=== PATIENT | female | born 1955 | race Caucasian/White ===

== ENCOUNTER → 2022-09-24 10:37 | Outpatient (CLI) | payer MEDICARE, SELFPAY ==
--- NOTE | 2022-09-24 10:37 | NM_ITS ---
APPROVED REPORT Exam: Nuclear Stress Test Indication: Chest pain, SOB, CAD, HTN, High cholesterol, Tobacco use Patient Location: Outpatient Stress Tech: Lianet Blancas [place] Tech:Irena Marin, ARRT, RT (R)(N) Ht: 5 ft 1 in Wt: 120 lbs Bra Size: 34C HR: 75 bpm BP: 173/68 mmHg BSA: 1.52 m2 Rhythm: NSR TID: 1.12 BMI: 22.6 History: Chest pain, SOB, CAD, HTN, High cholesterol, Tobacco use Procedure: Patient received 0.4 mg of intravenous Lexiscan, resting heart rate 75 bpm, resting blood pressure 173/68 mmHg, with Lexiscan maximum heart rate achieved was 113 bpm which is % of the maximum predicted heart rate and blood pressure was 227/110 mmHg. With Lexiscan, patient denied any complaint of chest pain. Cardiac Stress and Resting SPECT Images: Cardiac Stress and Resting SPECT images were obtained using technetium 99m Myoview 32.0 mCi stress and 10.18 mCi at rest. Resting and stress perfusion imaging in both supine and prone positions demonstrate no evidence of fixed or reversible perfusion defects. Gated imaging demonstrates normal global and regional LV systolic function. LVEF is calculated at 67%. Conclusion: No evidence of fixed or reversible perfusion defects. Gated imaging demonstrates normal global and regional LV systolic function. LVEF is calculated at 67%. Electronically signed by : Mony Cummings, 09/25/2022 11:54:09
--- NOTE | 2022-09-24 11:16 | CA_ITS ---
APPROVED REPORT EXAM: Comprehensive 2D, Doppler, and color-flow Echocardiogram Customer Account Representative: Kiya Esteban, GEOVANNA, RVS Ht: 5 ft 1 in Wt: 121lbs BSA: 1.53 HR: 74 bpm BP: 139/84 mmHg Rhythm: NSR Indications: CP, CAD-stents, SOB, HLD 2D Dimensions IVSd 0.93 cm F: 0.6-1.0 LVEF (Visual) 51.50 % PWd 0.78 cm F: 0.6 - 1.0 LA Volume 53.80 mL LVDd 4.40 cm F: 3.9 - 5.3 LA Volume Index 34.50 mL/m2 (M/F) 16-34 LVDs 3.66 cm F: 2.2 - 3.5 M-Mode Dimensions LA Diam 3.69 cm (1.9-4.0) LVDd 4.05 cm (3.5-5.7) Ao Diam 2.68 cm (2.0-3.7) LVDs 2.55 cm (3.5-5.7) EF (Teich) 67.50% EPSs 0.24 cm FS 37.00% EDV (Teich) 72.10 mL TAPSE 2.29 (<1.7) ESV (Teich) 23.40 mL LV Diastology E Decel Time 197.00 (160-240 msec) E/A Ratio 1.16 MED E' 7.00 (< 7 cm/sec) MED A' 6.70 cm/s E'/MED E' Ratio 19.04 (>14) LAT E' 6.00 (<10 cm/sec) LAT A' 7.80 cm/s E/LAT E' Ratio 22.22 (>14) Aortic Valve LVOT Max 122.00 (70-110 cm/s) LVOT VTI 27.55 cm AoV Peak Axel. 233.00 (50-130 cm/s) AI PHT 312.00 ms AO Peak GR. 21.70 mmHg AO Mean GR. 11.60 (<5 mmHg) AO VTI 52.26 (18-25 cm) Mitral Valve MV A Velocity 115.00 (40-130 cm/s) E/A Ratio 1.16 MV Decel. Time 197.00 (160-240 ms) Pulmonary Valve PV Peak Velocity 88.00 (50-150 cm/s) Tricuspid Valve TR P. Velocity 267.00 cm/s RAP Estimate 10.00 mmHg RVSP 38.50 mmHg Left Ventricle The left ventricle is normal size. LVDd=4.4 cm. The left ventricular systolic function is normal. The left ventricular ejection fraction is within the normal range. There is normal left ventricular wall thickness. There is normal LV segmental wall motion. Transmitral Doppler flow pattern is abnormal. Diastolic function is indeterminate. LVEF is 55%. Right Ventricle The right ventricle is normal size. The right ventricular systolic function is normal. Atria The left atrium size is mildly dilated. The right atrium size is normal. There is no Doppler evidence of interatrial shunt. Aortic Valve The aortic valve is normal in structure. There is no aortic valvular stenosis. Moderate aortic regurgitation. Mitral Valve The mitral valve leaflets appear mildly thickened. The motion of the posterior leaflet appears restricted. No evidence of mitral valve stenosis. Mean transmitral gradient is 4 mmHg (HR 82 bpm) Mild to moderate mitral regurgitation. Tricuspid Valve The tricuspid valve leaflets appear thin and pliable. Trace tricuspid regurgitation. RVSP is 30-35 mmHg Pulmonic Valve The pulmonary valve is normal in structure. Trace pulmonic regurgitation. Great Vessels The aortic root is normal in size. Pericardium There is no pericardial effusion. Conclusion Normal biventricular systolic function. Moderate aortic regurgitation (with normal LV dimensions) Mildly thickened MV leaflets. The posterior MV leaflet appears to have restricted motion. Mild MR. No MS. Electronically signed by : Mony Cummings, 09/24/2022 16:24:03
--- NOTE | 2022-09-24 12:54 | HMH.ITSHM ---
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 []ROSUVASTATIN PANTOPRAZOLE LEVOTHYROXINE LEVOCETIRIZINE ESCITALOPRAM DIAZEPAM BISOPROLOL ASA ALBUTEROL
--- NOTE | 2022-09-24 14:33 | CA_ITS ---
APPROVED REPORT Exam: Pharmacologic Technologist: Lianet Cano, Ht: 5 ft 1 in Wt: 121 lbs BSA: 1.53 m2 HR: 72 bpm BP: 173/68 mmHg Rhythm: NSR Indications: CP, CAD Medical History Medications: Levothyroxine,,,,, Asa,,,,, Diazepam,,,,, Pantoprazole,,,,, Escitalopram,,,,, Albuterol,,,,, BisOPROLOL,,,,, Levocetirizine,,,,, RoSUVASTATIN,,,,, Stress Test Details Test: LEXISCAN Reason for pharmacologic stress test: physical limitation. HR Resting HR: 75 bpm Max Heart Rate (APMHR): 151 bpm Max HR Achieved: 113 bpm Target HR (85% APMHR): 128 bpm % of APMHR: 75 Recovery HR: 80 bpm BP Resting BP: 173.0/68.0 mmHg Max BP: 227.0/110.0 mmHg Recovery BP: 186.0/79.0 mmHg ECG Resting ECG: NSR Stress ECG: No change Arrhythmia: PACs Recovery ECG: No change Recovery Arrhythmia: None Clinical Exercise duration: 04:00 min Highest Stage Achieved: Exercise capacity: n/a METs Stress ECG Conclusion Symptoms: Mild chest discomfort, mild nausea, mild SOA & headache. Arrhythmias/Ectopy: Rare PAC. ST-T Changes: No significant changes compared to baseline. Conclusion: Unremarkable Lexiscan stress. Myoview images reported separately. Of note, the BP was high during the stress test. Pt will get her BP rechecked the next day at her PCP office. Test Summary REST 04:27 . . 75 . 173/ 68 . . Stage 1 01:00 . . 103 . . . . Stage 2 01:00 . . 112 . 224/ 96 . . Stage 3 01:00 . . 111 . 222/101 . . Stage 4 01:00 . . 107 . 227/110 . Stop exercise at 04:00 RECOVERY 01:00 . . 107 . . . . RECOVERY 02:00 . . 101 . . . . RECOVERY 03:00 . . 107 . 225/ 96 . . RECOVERY 04:00 . . 97 . 225/ 96 . . RECOVERY 05:00 . . 94 . 225/ 96 . . RECOVERY 06:00 . . 90 . 225/ 96 . . RECOVERY 07:00 . . 83 . 219/ 87 . . RECOVERY 08:00 . . 82 . 187/ 82 . . RECOVERY 09:00 . . 83 . 186/ 79 . . RECOVERY 09:24 . . 79 . 186/ 79 . . Electronically signed by : Mony Cummings, 09/24/2022 17:28:12
== END ==
LOC: RAD 10:37
PROVIDERS: PCP Nurse Practitioner; Visit Provider Nurse Practitioner Family
DX: I25.10 Atherosclerotic heart disease of native coronary artery without angina pectoris (principal); K21.9 Gastro-esophageal reflux disease without esophagitis; R07.9 Chest pain, unspecified; R42 Dizziness and giddiness; Z95.5 Presence of coronary angioplasty implant and graft
CPT/HCPCS: 78452; 93017; 93306; A9502; J0280; J2785